=== PATIENT | female | born 1965 | race Caucasian/White ===

== ENCOUNTER 2018-03-13 16:09 | Emergency (ER) | payer OTHER ==
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
== END 2018-03-13 20:15 | disposition home or self-care (01) ==
LOC: NEDAMB 16:09 → NEPJ 20:15
DX: F43.9 Reaction to severe stress, unspecified (principal)
CPT/HCPCS: 99283